=== PATIENT | female | born 1985 | race Caucasian/White ===

== ENCOUNTER 2021-02-22 17:19 | Emergency (ER) | payer BC ==
[~2021-02-22] VITALS: Ht 170.2 cm; Wt 55.0 kg
[2021-02-22 17:19] VITALS: BP 99/60
[2021-02-22] MEDS ORDERED: CEPH500T PO (17:43)
[2021-02-22] MEDS ORDERED: MUPI22OI2 TP (17:43)
--- NOTE | 2021-02-22 17:43 | PHYS DOC ---
Adult General Chief Complaint Chief Complaint: ABSCESS HPI HPI Patient is a female no significant medical problems who presents to the ED today stating she has a cyst/ingrown hair to the left side of her " lady parts" patient states symptoms began yesterday, she states she has tried draining them with no relief (ALESIA BEARDEN YOUTH COORDINATOR) Review of Systems Review of Systems Constitutional: Denies fever or chills [] Musculoskeletal: Denies back pain or joint pain [] Integument: Reports abscess on the pubis Neurologic: Denies headache, focal weakness or sensory changes [] All other systems were reviewed and found to be within normal limits, except as documented in this note. (ALESIA BEARDEN YOUTH COORDINATOR) Physical Exam Physical Exam Constitutional: Well developed, well nourished, no acute distress, non-toxic appearance. [] Skin: Left pubic area with an indurated area roughly 0.5 x 0.5 cm with cellulitis, the area is firm, there is no fluctuance and nothing to drain, the tip of the area is scabbed up consistent with patient trying to open this abscess. Left labia majora with another indurated area approximately 0.3 x 0.5 cm with surrounding cellulitis. The area is warm tender to touch but not fluctuant Back: No tenderness, no CVA tenderness. [] Extremities: No tenderness, no cyanosis, no clubbing, ROM intact, no edema. [] Neurologic: Alert and oriented X 3, normal motor function, normal sensory function, no focal deficits noted. [] Psychologic: Affect normal, judgement normal, mood normal. [] (ALESIA BEARDEN YOUTH COORDINATOR) EKG EKG [] (ALESIA BEARDEN YOUTH COORDINATOR) Radiology/Procedures Radiology/Procedures [] (ALESIA BEARDEN YOUTH COORDINATOR) Heart Score C/O Chest Pain: N/A Risk Factors: Risk Factors: DM, Current or recent (<one month) smoker, HTN, HLP, family history of CAD, obesity. Risk Scores: Risk Factors: DM, Current or recent (<one month) smoker, HTN, HLP, family history of CAD, obesity. (ALESIA BEARDEN YOUTH COORDINATOR) Course & Med Decision Making Course & Med Decision Making Pertinent Labs and Imaging studies reviewed. (See chart for details) This is a 35-year-old female patient presenting to the ED today with abscess and cellulitis on the pubic region likely from ingrown hairs. Advised to consider not shaving for now. Tetanus updated. None of the abscess is already to be drained. Warm compresses recommended to the area. Discharged with mupirocin and cephalexin (ALESIA BEARDEN APRN) Griselda Disclaimer Dragon Disclaimer This electronic medical record was generated, in whole or in part, using a voice recognition dictation system. (ALESIA BEARDEN APRN) Attending Co-Sign The patient was seen and interviewed as well as examined at the bedside. The chart was reviewed. The case was discussed. Agree with the plan of care. (SHIRLENE NG DO) Departure Departure: Impression: Primary Impression: Abscess or cellulitis of groin Disposition: HOME / SELF CARE / HOMELESS Condition: STABLE Referrals: PCP,UNKNOWN (PCP) follow up with your doctor in 1-2 weeks Patient Instructions: Abscess, [id number] Additional Instructions: You have an abscess with cellulitis use the prescribed medications as ordered. Please apply warm compresses to the affected area twice a day. Follow-up with your own doctor in 1 to 2 weeks. Come back to the ED at any point symptoms worsen Scripts Cephalexin (CEPHALEXIN) 500 Mg Tablet 1 TAB PO TID, #30 TAB Prov: ALESIA BEARDEN APRN 02/22/21 Mupirocin (MUPIROCIN) 22 Gm Oint...g. 1 AYESHA TP TID, #22 GM Prov: ALESIA BEARDEN APRN 02/22/21 ALESIA BEARDEN APRN Feb 22, 2021 17:43 SHIRLENE NG DO Feb 24, 2021 13:04
[2021-02-22] MEDS ORDERED: DIPH,PERTUSS(ACELL),TET VAC/PF 0.5 ML SYRINGE. VAX IM ONE (18:30)
== END 2021-02-22 18:22 | disposition home or self-care (01) ==
LOC: ER 17:19
DX: L02.214 Cutaneous abscess of groin (principal); L03.314 Cellulitis of groin
CPT/HCPCS: 90471; 90715; 99283